=== PATIENT | female | born 1955 | race Caucasian/White ===

== ENCOUNTER 2020-01-03 11:50 | Emergency (ER) | payer BC, SELFPAY ==
[~2020-01-03] VITALS: Ht 165.1 cm; Wt 82.9 kg
[2020-01-03 11:51] VITALS: BP 135/65
[2020-01-03] MEDS ORDERED: SULF1TAB93 PO (12:06)
== END 2020-01-03 14:56 | disposition home or self-care (01) ==
LOC: M ED 11:50
DX: L03.312 Cellulitis of back [any part except buttock and flank] (principal); Z88.6 Allergy status to analgesic agent